=== PATIENT | female | born 2005 | race African-American/Black ===

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

== ENCOUNTER 2025-02-10 11:11 | Emergency (ER) | payer BC, SELFPAY ==
[2025-02-10] MEDS ORDERED: Lidocaine 1% (PF) 30 ML VIAL ONE (11:33)
== END 2025-02-10 11:52 | disposition home or self-care (01) ==
LOC: ERS 11:11
DX: T16.1XXA Foreign body in right ear, initial encounter (principal)
CPT/HCPCS: 69200; 99282